=== PATIENT | male | born 1975 | race Caucasian/White ===

== ENCOUNTER 2017-06-25 12:21 | Emergency (ER) | payer MEDICAID ==
[~2017-06-25] VITALS: Ht 167.6 cm; Wt 99.5 kg
[2017-06-25 12:41] VITALS: BP 167/121
[2017-06-25] MEDS ORDERED: FLUORESCEIN OPHTHALMIC 1 MG STRIP EACHEYE ONE (13:00)
[2017-06-25] MEDS ORDERED: PROPARACAINE OPHTH 0.5%, 15ML EACHEYE ONE (13:00)
[2017-06-25] MEDS ORDERED: FLUORESCEIN OPHTHALMIC 1 MG STRIP ONE (13:02)
[2017-06-25] MEDS ORDERED: PROPARACAINE OPHTH 0.5%, 15ML ONE (13:02)
== END 2017-06-25 14:10 | disposition home or self-care (01) ==
LOC: ED 13:50
DX: H10.232 Serous conjunctivitis, except viral, left eye (principal); E11.9 Type 2 diabetes mellitus without complications; E78.5 Hyperlipidemia, unspecified; I10 Essential (primary) hypertension
CPT/HCPCS: 99283

== ENCOUNTER 2018-07-12 11:53 | Emergency (ER) | payer SELFPAY ==
[~2018-07-12] VITALS: Ht 165.1 cm; Wt 102.2 kg
[2018-07-12 12:19] VITALS: BP 181/109
--- NOTE | 2018-07-12 15:14 | NUR ---
NO ANSWER IN LOBBY OR LOBBY BATHROOM.
--- NOTE | 2018-07-12 16:43 | NUR ---
NO ANSWER X 2
--- NOTE | 2018-07-12 17:01 | NUR ---
NO ANSWER IN LOBBY.
--- NOTE | 2018-07-12 17:04 | NUR ---
NO ANS X 3
== END 2018-07-12 17:05 | disposition left against medical advice (07) ==
LOC: ED 16:59
DX: R50.9 Fever, unspecified (principal); R51 Headache; Z53.21 Procedure and treatment not carried out due to patient leaving prior to being seen by health care provider

== ENCOUNTER 2018-09-23 16:01 | Emergency (ER) | payer SELFPAY ==
[~2018-09-23] VITALS: Ht 165.1 cm; Wt 101.0 kg
[2018-09-23] MEDS ORDERED: PLEASE ENTER HEIGHT AND WEIGHT MC SCH (16:24)
[2018-09-23] MEDS ORDERED: LIDOCAINE-MPF 1%, 5ML INFIL ONE (16:30)
[2018-09-23 16:51] LABS: ALBUMIN 1.8 g/dL (3.4-5.0); ANION GAP 9 mmol/L (5-15); CALCIUM 8.1 mg/dL (8.5-10.1); CHLORIDE 102 mmol/L (98-107); CREATININE 2.33 mg/dL (0.7-1.3)
[2018-09-23] MEDS ORDERED: DIPH,PERTUSS(ACELL),TET VAC/PF 0.5 ML IM-VACC ONE ×2 (17:00→17:02)
[2018-09-23] MEDS ORDERED: LISINOPRIL 10 MG TABLET PO ONE (17:00)
[2018-09-23] MEDS ORDERED: LISINOPRIL 10 MG TABLET ONE (17:01)
[2018-09-23 17:02] LABS: MEAN CORPUSCULAR HEMOGLOBIN 26.9 pg (27.5-34.5); MEAN CORPUSCULAR HGB CONC 32.8 g/dL (33.2-36.2); MEAN CORPUSCULAR VOLUME 81.8 fL (81-97); PLATELET COUNT 268 x10^3/uL (130-400); RED BLOOD COUNT 6.06 x10^6/uL (4.38-5.82); RED CELL DISTRIBUTION WIDTH 13.4 % (9.4-14.8)
[2018-09-23] MEDS ORDERED: LIDOCAINE-MPF 1%, 5ML ONE ×2 (17:02)
--- NOTE | 2018-09-23 17:19 | NUR ---
RIGHT THUMB PAIN AFTER HITTING IT A FEW WEEKS AGO AT WORK. ERYTHEMA AT NAIL BED. PT STATES THAT THERE HAS BEEN PUS COMING OUT OF IT. PT STATES HE HAS HAD NO ENERGY. ADMITS TO NOT TAKING HIS DIABETES MEDS OR BLOOD PRESSURE MEDICATIONS CONSISTENTLY AND THAT HIS BLOOD SUGAR HAS BEEN RUNNING HIGH. BILATERAL LOWER EXTREMITY SWELLING FOR A YEAR AND HAS PINS/NEEDLES PAIN IN HIS FEET. AMBULATED TO BATHROOM WITHOUT ASSISTANCE
[2018-09-23 17:34] LABS: MD YES
[2018-09-23 17:35] LABS: <RBC MORPHOLOGY> NORMAL; EOS#(MANUAL) 0.26 x10^3/uL (0.0-0.4); EOS% (MANUAL) 3 % (1-7); LYMPH#(MANUAL) 1.45 x10^3/uL (1-3.4); LYMPHS% (MANUAL) 17 % (22-44); MONOS#(MANUAL) 0.43 x10^3/uL (0.3-2.7); MONOS% (MANUAL) 5 % (2-9); REACTIVE LYMPHS # (MANUAL) 0.26 x10^3/uL (0-0); REACTIVE LYMPHS % (MANUAL) 3 % (0-0); SEG#(MANUAL) 6.12 x10^3/uL (1.8-6.8); SEGS% (MANUAL) 72 % (42-75); SMUDGE CELLS 1+
[2018-09-23 17:36] LABS: <PLATELET ESTIMATE> ADEQUATE; GIANT PLATELETS 1+; LARGE PLATELETS 1+
[2018-09-23 17:53] LABS: PH, VENOUS 7.373 pH (7.320-7.420)
[2018-09-23 18:00] VITALS: BP 212/129
[2018-09-23] MEDS ORDERED: SODIUM CHLORIDE FLUSH 10ML SYR IVF ONE (18:00)
[2018-09-23] MEDS ORDERED: SODIUM CHLORIDE 0.9% 1,000ML IVBOLUS ONE (18:00)
--- NOTE | 2018-09-23 18:16 | NUR ---
PT DOES NOT WANT TO BE ADMITTED TO HOSPITAL, STATING THAT HE HAS TO FINISH A PROJECT AT WORK TOMORROW TO GET PAID. DR BULLOCK AT BEDSIDE DISCUSSING LAB RESULTS AND BENEFITS OF ADMISSION. PT AND GIVEN TIME TO DISCUSS OPTIONS
[2018-09-23 18:21] LABS: MICROSCOPIC INDICATED
[2018-09-23 18:30] LABS: CULTURE INDICATED? NO
--- NOTE | 2018-09-23 18:38 | NUR ---
MD AWARE OF CURRENT BP
--- NOTE | 2018-09-23 18:38 | NUR ---
PT STATES HE WANTS TO BE DISCHARGED AND WILL RETURN TOMORROW. MD LOREDO
[2018-09-23 19:08] LABS: ACETONE, SERUM Trace (10mg/dL) mg/dL (Negative)
--- NOTE | 2018-09-23 19:10 | NUR ---
TASK RN: DESPITE EXTENSIVE CONVERSATION WITH ERP REGARDING ADMIT- PT REFUSING AND IS REQUESTING DC. DC EDUCATION PROVIDED W/ ADVISEMENT TO RETURN TO ED TOMORROW FOR ADMIT. PT DEMONSTRATES UNDERSTANDING. PT AMBULATED STEADILY TO DC WITH RN
[2018-09-24] MEDS ORDERED: GLIP-142 PO (19:12)
[2018-09-24] MEDS ORDERED: ATOR-2 PO (23:07)
== END 2018-09-23 19:13 | disposition home or self-care (01) ==
LOC: ED 18:20
DX: L03.011 Cellulitis of right finger (principal); E88.09 Other disorders of plasma-protein metabolism, not elsewhere classified; I10 Essential (primary) hypertension; E11.65 Type 2 diabetes mellitus with hyperglycemia; Z88.0 Allergy status to penicillin
CPT/HCPCS: 10060; 36415; 71046; 80048; 81001; 82010; 82040; 82803; 83880; 85025; 90471; 90715; 93005

== ENCOUNTER 2018-09-24 17:31 | Inpatient (IN) | payer OTHER ==
[~2018-09-24] VITALS: Ht 167.6 cm; Wt 96.6 kg
[2018-09-24] MEDS ORDERED: SODIUM CHLORIDE FLUSH 10ML SYR IVF ONE (18:00)
[2018-09-24] MEDS ORDERED: hydrALAzine 20 MG/ML, 1ML IV ONE ×2 (18:00→20:30)
--- NOTE | 2018-09-24 18:00 | NUR ---
HX DIABETIC AND RENAL HERE YESTERDAY WAS RECOMENDED FOR ADMIT AND AMAd RETURNED TODAY REQUESTING ADMIT
[2018-09-24] MEDS ORDERED: hydrALAzine 20 MG/ML, 1ML ONE ×2 (18:03→19:41)
[2018-09-24] MEDS ORDERED: ASPIRIN 81 MG TABLET CHEW PO ONE ×2 (18:30→19:00)
[2018-09-24] MEDS ORDERED: ASPIRIN 81 MG TABLET CHEW ONE (18:35)
[2018-09-24 18:37] LABS: ALANINE AMINOTRANSFERASE 20 U/L (12-78); ALBUMIN 1.8 g/dL (3.4-5.0); ANION GAP 10 mmol/L (5-15); CHLORIDE 105 mmol/L (98-107); CREATININE 1.93 mg/dL (0.7-1.3)
[2018-09-24 18:41] LABS: ALKALINE PHOSPHATASE 120 U/L (45-117); BILIRUBIN,TOTAL 0.3 mg/dL (0.2-1.0); TOTAL PROTEIN 6.5 g/dL (6.4-8.2); TROPONIN I < 0.015 ng/mL (0.000-0.045)
--- NOTE | 2018-09-24 18:51 | NUR ---
ULTRASOUND DELAY-LABS.
--- NOTE | 2018-09-24 19:03 | NUR ---
RECEIVED REPORT FROM SHANTEL FARRELL TO ASSUME CARE OF PT. LAB AT FOR BLOOD DRAW. FAMILY AT FOR SUPPORT. PT. AGREEABLE WITH PLAN FOR ADMISSION(HAD LEFT AMA PRIOR). ALL MONITORS IN PLACE. CALL LIGHT IN REACH. ALL SAFETY MEASURES OBSERVED.
[2018-09-24] MEDS ORDERED: GLIP-142 PO (19:12)
[2018-09-24 19:22] LABS: CALCIUM 8.1 mg/dL (8.5-10.1)
[2018-09-24 19:25] LABS: ABSOLUTE RETICS # 0.109 x10^6/uL (0.5-1.5); RED BLOOD COUNT 6.01 x10^6/uL (4.38-5.82); RETICULOCYTE COUNT % 1.81 % (0.5-1.5)
--- NOTE | 2018-09-24 19:28 | NUR ---
CONTINUED ELEVATED B/P AND OTHER LABS REPORTED TO [facility]; AWAING NEW ORDERS BY [facility]. PT. WITHOUT COMPLAINT AT THIS TIME.
[2018-09-24] MEDS ORDERED: LABETALOL 20 MG/4 ML IVPush PRN (19:30)
[2018-09-24 19:45] LABS: HEMOGLOBIN A1C 13.2 % (4.2-6.3)
[2018-09-24] MEDS ORDERED: LISINOPRIL 20 MG TABLET ONE (19:45)
--- NOTE | 2018-09-24 19:58 | NUR ---
URINE COLLECTED AND SENT TO LAB. AGAIN DISCUSSED B/P AND FSBS OF 514 WITH [facility]; HE STATES NEW ORDERS TO BE PUT IN. FOR NOW VERBAL ORDER TO ADMIN THE PRN HYDRALAZINE. AWAITING NEW ORDERS.
[2018-09-24] MEDS: hydrALAzine 20 MG/ML, 1ML IV PRN (20:01)
--- NOTE | 2018-09-24 20:07 | NUR ---
PT. HAS BEEN MEDICATED PER JUL.
--- NOTE | 2018-09-24 20:14 | NUR ---
UPDATEDS ABOUT PT. AND ORDERS CALLED TO SHANTEL DOTY. PT. BEING TRANSPORTED TO FLOOR NOW. STAT GLUCOSE BY LAB ORDERED AND NEW ORDERS HAVE BEEN REPORTED TO SHANTEL DOTY.
[2018-09-24 20:16] LABS: MICROSCOPIC INDICATED
--- NOTE | 2018-09-24 20:17 | NUR ---
LAB HAD CALLED AND REPORTED THEY NEED MORE URINE TO RUN ALL URINE ORDER. URINE CUP WALKED TO LAB FOR THIS.
[2018-09-24 20:22] VITALS: BP 171/100
[2018-09-24 20:22] LABS: CREATININE,URINE RANDOM 51.9 mg/dL
[2018-09-24 20:25] LABS: CULTURE INDICATED? NO
[2018-09-24] MEDS: FUROSEMIDE 20 MG/2 ML IV SCH (20:28)
[2018-09-24] MEDS: LISINOPRIL 20 MG TABLET PO SCH (20:28)
[2018-09-24] MEDS: INSULIN LISPRO 100 UNITS/ML, PEN SQ-INSULIN SCH (20:28)
[2018-09-24] MEDS ORDERED: POTASSIUM CHLORIDE 40 MEQ in SODIUM CHLORIDE 0.9% 500 ML IV ONE (20:30)
[2018-09-24] MEDS ORDERED: LISINOPRIL 10 MG TABLET PO SCH (21:00)
[2018-09-24 21:53] VITALS: BP 189/105
[2018-09-24] MEDS ORDERED: INSULIN REGULAR 100 UNITS/ML, 3ML VIAL SQ-INSULIN ONE (22:00)
[2018-09-24 22:51] VITALS: BP 146/91
[2018-09-24 23:00] VITALS: BP_SYST 146; BP_SYST 220; BP_DIAS 130; BP_DIAS 91
[2018-09-24] MEDS ORDERED: ATOR-2 PO (23:07)
[2018-09-25] VITALS (9 sets, daily range): BP systolic 128–179; BP diastolic 63–112
[2018-09-25] MEDS: hydrALAzine 20 MG/ML, 1ML IV PRN (03:46)
[2018-09-25] MEDS ORDERED: METF500T17 PO (03:53)
[2018-09-25] MEDS ORDERED: LISI-167 PO (03:54)
[2018-09-25] MEDS ORDERED: ASPI81TA45 PO (03:56)
[2018-09-25 05:34] LABS: ALANINE AMINOTRANSFERASE 12 U/L (12-78); ALBUMIN 1.5 g/dL (3.4-5.0); ANION GAP 11 mmol/L (5-15); CALCIUM 7.6 mg/dL (8.5-10.1); CHLORIDE 110 mmol/L (98-107); CREATININE 1.59 mg/dL (0.7-1.3)
[2018-09-25 05:39] LABS: ALKALINE PHOSPHATASE 89 U/L (45-117); BILIRUBIN,TOTAL 0.4 mg/dL (0.2-1.0); TOTAL PROTEIN 5.3 g/dL (6.4-8.2); TROPONIN I < 0.015 ng/mL (0.000-0.045)
[2018-09-25 06:08] LABS: MEAN CORPUSCULAR HEMOGLOBIN 27.2 pg (27.5-34.5); MEAN CORPUSCULAR HGB CONC 33.5 g/dL (33.2-36.2); MEAN PLATELET VOLUME 11.2 fL (7.4-10.4); PLATELET COUNT 254 x10^3/uL (130-400); RED BLOOD COUNT 5.47 x10^6/uL (4.38-5.82); RED CELL DISTRIBUTION WIDTH 13.2 % (9.4-14.8)
[2018-09-25 06:11] LABS: <PLATELET ESTIMATE> ADEQUATE; <PLT MORPHOLOGY> NORMAL PLT MORPH; <RBC MORPHOLOGY> NORMAL; BASOPHILS # (AUTO) 0.04 x10^3/uL (0-0.1); BASOPHILS % (AUTO) 1 % (0-1); EOSINOPHILS # (AUTO) 0.26 x10^3/uL (0-0.4); EOSINOPHILS % (AUTO) 3 % (1-7); LARGE PLATELETS 1+; LYMPHOCYTES # (AUTO) 1.89 x10^3/uL (1-3.4); LYMPHOCYTES % (AUTO) 24 % (22-44); MD MORPH REVIEW ONLY; MONOCYTES # (AUTO) 0.67 x10^3/uL (0.2-0.8); MONOCYTES % (AUTO) 9 % (2-9); NEUTROPHILS # (AUTO) 4.89 x10^3/uL (1.8-6.8); NEUTROPHILS % (AUTO) 63 % (42-75)
[2018-09-25] MEDS: FUROSEMIDE 20 MG/2 ML IV SCH ×2 (07:44→21:51)
[2018-09-25] MEDS: LISINOPRIL 20 MG TABLET PO SCH ×2 (07:44→21:39)
[2018-09-25] MEDS: GLIPIZIDE 10 MG HOMEMEDPO SCH (07:44)
[2018-09-25] MEDS: INSULIN LISPRO 100 UNITS/ML, PEN SQ-INSULIN SCH ×4 (07:51→21:40)
[2018-09-25] MEDS ORDERED: POTASSIUM CHLORIDE 20 MEQ TAB.ER.PRT PO ONE ×2 (09:00→17:00)
[2018-09-25] MEDS: AMLODIPINE 5 MG TABLET PO SCH (12:58)
[2018-09-25] MEDS: ACETAMINOPHEN 325 MG TABLET PO PRN ×2 (12:58→22:02)
[2018-09-25] MEDS ORDERED: LABETALOL 5 MG/ML SYRINGE IVPush PRN (13:30)
[2018-09-25] MEDS ORDERED: hydrALAzine 20 MG/ML, 1ML IV PRN (16:00)
[2018-09-25] MEDS: METOPROLOL TARTRATE 25 MG TABLET PO SCH (17:09)
[2018-09-25] MEDS ORDERED: INSULIN GLARGINE 100 UNITS/ML, PEN SQ-INSULIN SCH (21:00)
[2018-09-26 01:44] VITALS: BP 116/73
[2018-09-26 05:12] VITALS: BP 164/100
[2018-09-26] MEDS: METOPROLOL TARTRATE 25 MG TABLET PO SCH (05:14)
[2018-09-26 06:06] LABS: ALBUMIN 1.6 g/dL (3.4-5.0); ANION GAP 8 mmol/L (5-15); CALCIUM 7.7 mg/dL (8.5-10.1); CHLORIDE 108 mmol/L (98-107); CREATININE 1.84 mg/dL (0.7-1.3); MEAN CORPUSCULAR HEMOGLOBIN 27.3 pg (27.5-34.5); MEAN CORPUSCULAR HGB CONC 33.4 g/dL (33.2-36.2); MEAN CORPUSCULAR VOLUME 81.8 fL (81-97); MEAN PLATELET VOLUME 11.6 fL (7.4-10.4); PLATELET COUNT 295 x10^3/uL (130-400); RED BLOOD COUNT 5.57 x10^6/uL (4.38-5.82); RED CELL DISTRIBUTION WIDTH 13.4 % (9.4-14.8)
[2018-09-26 07:30] VITALS: BP 168/101
[2018-09-26 07:45] LABS: BASOPHILS # (AUTO) 0.03 x10^3/uL (0-0.1); BASOPHILS % (AUTO) 0 % (0-1); EOSINOPHILS # (AUTO) 0.24 x10^3/uL (0-0.4); EOSINOPHILS % (AUTO) 3 % (1-7); LYMPHOCYTES # (AUTO) 1.79 x10^3/uL (1-3.4); LYMPHOCYTES % (AUTO) 22 % (22-44); MD SCAN; MONOCYTES # (AUTO) 0.79 x10^3/uL (0.2-0.8); MONOCYTES % (AUTO) 10 % (2-9); NEUTROPHILS # (AUTO) 5.47 x10^3/uL (1.8-6.8); NEUTROPHILS % (AUTO) 66 % (42-75)
[2018-09-26] MEDS: AMLODIPINE 5 MG TABLET PO SCH (08:11)
[2018-09-26] MEDS: INSULIN LISPRO 100 UNITS/ML, PEN SQ-INSULIN SCH ×2 (08:11→11:25)
[2018-09-26] MEDS: LISINOPRIL 20 MG TABLET PO SCH (08:12)
[2018-09-26] MEDS: GLIPIZIDE 10 MG HOMEMEDPO SCH (08:12)
[2018-09-26] MEDS: FUROSEMIDE 20 MG/2 ML IV SCH (08:12)
[2018-09-26] MEDS: ACETAMINOPHEN 325 MG TABLET PO PRN (10:03)
[2018-09-26 11:28] VITALS: BP 159/103
[2018-09-26 11:30] VITALS: BP 149/93
[2018-09-26] MEDS ORDERED: ERGOCALCIFEROL 50,000 UNIT CAPSULE PO SCH (12:00)
[2018-09-26] MEDS ORDERED: ATOR-2 PO (12:27)
[2018-09-26] MEDS ORDERED: LISI40TA PO (12:27)
[2018-09-26] MEDS ORDERED: METF500T17 PO (12:27)
[2018-09-26] MEDS ORDERED: AMLO-150 PO (12:27)
[2018-09-26] MEDS ORDERED: INSU100I13 SQ-INSULIN (12:27)
[2018-09-26] MEDS ORDERED: ASPI81TA45 PO (12:27)
[2018-09-26] MEDS ORDERED: GLIP-142 PO (12:27)
[2018-09-26] MEDS ORDERED: METO25TA35 PO (12:27)
[2018-09-26] MEDS ORDERED: ERGO500017 PO (12:30)
[2018-09-26] MEDS ORDERED: FURO80TA3 PO (12:30)
[2018-09-26] MEDS ORDERED: POTA20TA91 PO (12:35)
[2018-09-26] MEDS ORDERED: MAGN64TA7 PO (12:35)
[2018-09-26 13:20] VITALS: BP 120/65
[2018-09-26] MEDS ORDERED: FUROSEMIDE 80 MG TABLET PO SCH (17:00)
== END 2018-09-26 14:21 | disposition home or self-care (01) | DRG 682 ==
LOC: ED 18:10 → EDIP 18:32 → 4WST 20:15 → DCLOUNGE 09-26 14:20
PROVIDERS: ADMIT Internal Medicine; ATTEND Internal Medicine
DX: N17.0 Acute kidney failure with tubular necrosis (principal); E43 Unspecified severe protein-calorie malnutrition; D75.1 Secondary polycythemia; E11.22 Type 2 diabetes mellitus with diabetic chronic kidney disease; E11.40 Type 2 diabetes mellitus with diabetic neuropathy, unspecified; E11.65 Type 2 diabetes mellitus with hyperglycemia; E55.9 Vitamin D deficiency, unspecified; E78.5 Hyperlipidemia, unspecified; E87.70 Fluid overload, unspecified; F12.90 Cannabis use, unspecified, uncomplicated; I12.9 Hypertensive chronic kidney disease with stage 1 through stage 4 chronic kidney disease, or unspecified chronic kidney disease; I16.0 Hypertensive urgency; N18.3 Chronic kidney disease, stage 3 (moderate); N25.0 Renal osteodystrophy; Z79.899 Other long term (current) drug therapy; Z91.14 Patient's other noncompliance with medication regimen; Z82.49 Family history of ischemic heart disease and other diseases of the circulatory system; Z91.19 Patient's noncompliance with other medical treatment and regimen; Z68.34 Body mass index [BMI] 34.0-34.9, adult; Z88.0 Allergy status to penicillin
CPT/HCPCS: 36415; 76770; 80053; 80069; 81001; 82306; 82310; 82436; 82570; 82728; 82947; 82962; 83036; 83540; 83550; 83735; 83970; 84100; 84133; 84155; 84156; 84165; 84166; 84300; 84443; 84484; 84550; 85025; 85045; 93005; 93306; 96374; G0378; J1815; J3480; J0360; J1940; J7040

== ENCOUNTER 2019-05-13 14:54 | Emergency (ER) | payer MEDICAID ==
[~2019-05-13] VITALS: Ht 167.6 cm; Wt 106.0 kg
[~2019-05-13 14:54] MED LIST: AMLO-150 PO; ASPI81TA45 PO; ATOR-2 PO; ERGO500017 PO; FURO80TA3 PO; GLIP-142 PO; INSU100I13 SQ-INSULIN; LISI-167 PO; LISI40TA PO; MAGN64TA7 PO; METF500T17 PO; METO25TA35 PO; POTA20TA91 PO
[2019-05-13 14:56] VITALS: BP 173/96
[2019-05-13] MEDS ORDERED: FLUORESCEIN OPHTHALMIC 1 MG STRIP ONE (15:10)
[2019-05-13] MEDS ORDERED: PROPARACAINE OPHTH 0.5%, 15ML ONE (15:10)
--- NOTE | 2019-05-13 15:14 | NUR ---
PT AMBULATORY TO ROOM 6 W/ C/O L EYE BURNING, ITCHING, SENSITIVE TO LIGHT. PT STATES SX STARTED YESTERDAY. PT RESTING ON ZULMA. DELISA.
[2019-05-13] MEDS ORDERED: FLUORESCEIN OPHTHALMIC 1 MG STRIP EACHEYE ONE (15:30)
[2019-05-13] MEDS ORDERED: PROPARACAINE OPHTH 0.5%, 15ML EACHEYE ONE (15:30)
== END 2019-05-13 15:30 | disposition home or self-care (01) ==
LOC: ED 15:20
DX: H10.022 Other mucopurulent conjunctivitis, left eye (principal); E78.5 Hyperlipidemia, unspecified; E11.65 Type 2 diabetes mellitus with hyperglycemia; I10 Essential (primary) hypertension
CPT/HCPCS: 99283

== ENCOUNTER 2019-09-03 12:57 | Emergency (ER) | payer MEDICAID ==
[~2019-09-03] VITALS: Ht 165.1 cm; Wt 105.6 kg
--- NOTE | 2019-09-03 13:25 | NUR ---
THIS IS A 43 YO MALE WHO PRESENTS TO THE ER C/O VISION CHANGES AND HYPERTENSION. PT REPORTS HE IS COMPLIANT WITH BP MEDS BUT HAS BEEN "VERY STRESSED" LATELY. PT DENIES FARAH. PT DENIES DIZZINESS. DENIES SI/HI. PT AO X 4. SKIN PWD. RESP EVEN AND UNLABORED. PT ON CONT BP AND O2 MONITORS. CALL LIGHT WITHIN REACH. WILL CONT TO MONITOR PT.
[2019-09-03 14:07] LABS: MEAN CORPUSCULAR HEMOGLOBIN 27.1 pg (27.5-34.5); MEAN CORPUSCULAR VOLUME 81.9 fL (81-97); MEAN PLATELET VOLUME 11.1 fL (7.4-10.4); PLATELET COUNT 254 x10^3/uL (130-400); RED BLOOD COUNT 5.63 x10^6/uL (4.38-5.82); RED CELL DISTRIBUTION WIDTH 14.8 % (9.4-14.8)
[2019-09-03 14:15] LABS: ANION GAP 5 mmol/L (5-15); CALCIUM 8.4 mg/dL (8.5-10.1); CHLORIDE 112 mmol/L (98-107); CREATININE 2.83 mg/dL (0.7-1.3)
[2019-09-03 14:35] LABS: BASOPHILS # (AUTO) 0.04 x10^3/uL (0-0.1); BASOPHILS % (AUTO) 1 % (0-1); EOSINOPHILS # (AUTO) 0.44 x10^3/uL (0-0.4); EOSINOPHILS % (AUTO) 5 % (1-7); LYMPHOCYTES % (AUTO) 19 % (22-44); MD MORPH REVIEW ONLY; MONOCYTES # (AUTO) 0.73 x10^3/uL (0.2-0.8); MONOCYTES % (AUTO) 9 % (2-9); NEUTROPHILS # (AUTO) 5.69 x10^3/uL (1.8-6.8); NEUTROPHILS % (AUTO) 67 % (42-75)
[2019-09-03 14:36] LABS: <PLATELET ESTIMATE> ADEQUATE; <RBC MORPHOLOGY> NORMAL; GIANT PLATELETS 1+
--- NOTE | 2019-09-03 14:51 | NUR ---
BP RECHECKED MANUALLY BY PHAN PATRICIA. 170/98. PT REMEDICATED ORDERED WITH SECOND CLONIDINE. PT AO X 4. SKIN PWD. RESP EVEN AND UNLABORED. PT VERBALIZES UNDERSTANDING OF POC AND NEED FOR F/U TOMORROW MORNING WITH [facility].
[2019-09-03 15:26] VITALS: BP 170/95
== END 2019-09-03 15:29 | disposition home or self-care (01) ==
LOC: ED 14:23
DX: H57.89 Other specified disorders of eye and adnexa (principal); E11.65 Type 2 diabetes mellitus with hyperglycemia; I12.9 Hypertensive chronic kidney disease with stage 1 through stage 4 chronic kidney disease, or unspecified chronic kidney disease; E11.22 Type 2 diabetes mellitus with diabetic chronic kidney disease; N18.3 Chronic kidney disease, stage 3 (moderate); E78.5 Hyperlipidemia, unspecified
CPT/HCPCS: 36415; 80048; 85025; 99285

== ENCOUNTER 2020-07-20 22:57 | Inpatient (IN) | payer MEDICAID ==
[~2020-07-20] VITALS: Ht 172.7 cm; Wt 120.6 kg
[~2020-07-20 22:57] MED LIST changes: -LISI40TA PO; +LISI40TA9 PO
[2020-07-21 00:18] VITALS: BP 168/91
[2020-07-21] MEDS ORDERED: BISACODYL 10 MG SUPP PR PRN (00:30)
[2020-07-21] MEDS ORDERED: ONDANSETRON ODT 4 MG PO PRN (00:30)
[2020-07-21] MEDS ORDERED: SODIUM CHLORIDE 0.9% 1,000 ML IV SCH (00:30)
[2020-07-21] MEDS ORDERED: PROMETHAZINE 25 MG/ML, 1ML IM PRN (00:30)
[2020-07-21] MEDS ORDERED: hydrALAzine 20 MG/ML, 1ML IVPush PRN (00:30)
[2020-07-21] MEDS ORDERED: OXYcodone IR 5MG TABLET PO PRN (00:30)
[2020-07-21] MEDS: HEPARIN 5,000 UNITS/ML, 1ML SQ SCH ×3 (00:49→16:49)
[2020-07-21] MEDS ORDERED: FURO80TA3 PO (01:08)
[2020-07-21] MEDS ORDERED: POTA20TA14 PO (01:08)
[2020-07-21] MEDS: ONDANSETRON 2MG/ML, 2ML IVPush PRN (01:25)
[2020-07-21] MEDS ORDERED: LABETALOL 5MG/ML, 20ML IVPush PRN (01:30)
[2020-07-21 01:40] VITALS: BP 160/93
[2020-07-21] MEDS ORDERED: FUROSEMIDE 40 MG/4 ML IV ONE (02:00)
[2020-07-21] MEDS: ACETAMINOPHEN 325 MG TABLET PO PRN ×3 (04:02→16:49)
[2020-07-21] MEDS: INSULIN LISPRO 100 UNITS/ML, PEN SQ-INSULIN SCH ×4 (07:00→19:41)
[2020-07-21 07:21] LABS: BASOPHILS % (AUTO) 0 % (0-1); EOSINOPHILS % (AUTO) 3 % (1-7); LYMPHOCYTES % (AUTO) 11 % (22-44); MEAN PLATELET VOLUME 11.5 fL (7.4-10.4); MONOCYTES % (AUTO) 12 % (2-9); NEUTROPHILS % (AUTO) 75 % (42-75); PLATELET COUNT 256 x10^3/uL (130-400); RED BLOOD COUNT 3.94 x10^6/uL (4.38-5.82); RED CELL DISTRIBUTION WIDTH 14.7 % (9.4-14.8)
[2020-07-21 07:32] LABS: ALANINE AMINOTRANSFERASE 15 U/L (12-78); ALBUMIN 1.7 g/dL (3.4-5.0); ANION GAP 12 mmol/L (5-15); CALCIUM 6.8 mg/dL (8.5-10.1); CHLORIDE 113 mmol/L (98-107)
[2020-07-21 07:34] LABS: ALKALINE PHOSPHATASE 81 U/L (45-117); BILIRUBIN,TOTAL 0.7 mg/dL (0.2-1.0); CREATININE 7.94 mg/dL (0.7-1.3); TOTAL PROTEIN 5.7 g/dL (6.4-8.2)
[2020-07-21 07:46] LABS: MD SCAN
[2020-07-21 08:36] VITALS: BP 145/88
[2020-07-21] MEDS ORDERED: ASPIRIN 81 MG TABLET EC PO SCH (09:00)
[2020-07-21] MEDS: FUROSEMIDE 40 MG/4 ML IV SCH ×2 (09:45→16:49)
[2020-07-21] MEDS: LOSARTAN 50MG TABLET PO SCH ×2 (12:33→19:43)
[2020-07-21 13:58] VITALS: BP 155/89
[2020-07-21 14:14] LABS: ABSOLUTE RETICS # 0.062 x10^6/uL (0.5-1.5); RED BLOOD COUNT 4.43 x10^6/uL (4.38-5.82); RETICULOCYTE COUNT % 1.39 % (0.5-1.5)
[2020-07-21 14:15] LABS: CALCIUM 7.8 mg/dL (8.5-10.1)
[2020-07-21 15:07] LABS: MICROSCOPIC AUTO
[2020-07-21 15:14] LABS: CHLORIDE,URINE RANDOM 68 mmol/L; POTASSIUM,URINE RANDOM 36 mmol/L; SODIUM,URINE RANDOM 54 mmol/L
[2020-07-21 15:20] LABS: CREATININE,URINE RANDOM 80.3 mg/dL
[2020-07-21] MEDS: morphine SULFATE 10 MG/ML, 1ML IVPush PRN ×3 (18:40→22:53)
[2020-07-21 20:02] VITALS: BP 158/93
[2020-07-22] MEDS: ACETAMINOPHEN 325 MG TABLET PO PRN ×2 (00:30→20:12)
[2020-07-22] MEDS: HEPARIN 5,000 UNITS/ML, 1ML SQ SCH ×3 (00:30→17:31)
[2020-07-22 00:34] VITALS: BP 142/88
[2020-07-22] MEDS: morphine SULFATE 10 MG/ML, 1ML IVPush PRN ×3 (02:13→22:20)
[2020-07-22] MEDS: ONDANSETRON 2MG/ML, 2ML IVPush PRN ×3 (02:18→22:19)
[2020-07-22 05:06] LABS: BASOPHILS % (AUTO) 1 % (0-1); EOSINOPHILS % (AUTO) 5 % (1-7); LYMPHOCYTES % (AUTO) 19 % (22-44); MEAN CORPUSCULAR HEMOGLOBIN 27.4 pg (27.5-34.5); MEAN CORPUSCULAR HGB CONC 32.6 g/dL (33.2-36.2); MEAN PLATELET VOLUME 12.2 fL (7.4-10.4); MONOCYTES % (AUTO) 12 % (2-9); NEUTROPHILS % (AUTO) 63 % (42-75); PLATELET COUNT 267 x10^3/uL (130-400); RED BLOOD COUNT 4.14 x10^6/uL (4.38-5.82); RED CELL DISTRIBUTION WIDTH 15.3 % (9.4-14.8)
[2020-07-22 05:18] LABS: ALBUMIN 1.9 g/dL (3.4-5.0); ANION GAP 11 mmol/L (5-15); CALCIUM 7.2 mg/dL (8.5-10.1); CHLORIDE 111 mmol/L (98-107)
[2020-07-22 05:30] LABS: CHOL/HDL RATIO 5.6; CHOLESTEROL, TOTAL 186 mg/dL (140-239); CREATININE 8.52 mg/dL (0.7-1.3); HDL CHOL % 18 % (26-37); HDL CHOLESTEROL (DIRECT) 33 mg/dL (40-60); LDL CHOLESTEROL,CALCULATED 131 mg/dL (54-169); TRIGLYCERIDES 112 mg/dL (50-200); VLDL CHOLESTEROL 22 mg/dL (0-25)
[2020-07-22 05:36] LABS: MD SCAN
[2020-07-22] MEDS: INSULIN LISPRO 100 UNITS/ML, PEN SQ-INSULIN SCH ×4 (07:00→20:12)
[2020-07-22] MEDS: ERGOCALCIFEROL 50,000 UNIT CAPSULE PO SCH (08:00)
[2020-07-22 08:13] VITALS: BP 148/91
[2020-07-22] MEDS: FUROSEMIDE 40 MG/4 ML IV SCH ×2 (08:48→17:29)
[2020-07-22] MEDS: LOSARTAN 50MG TABLET PO SCH ×2 (08:49→20:12)
[2020-07-22] MEDS ORDERED: FENTANYL PF 100 MCG/2ML ONE ×2 (10:16→13:51)
[2020-07-22] MEDS ORDERED: MIDAZOLAM 1 MG/ML, 5ML ONE ×3 (10:16→13:52)
[2020-07-22] MEDS ORDERED: FLUMAZENIL 0.1 MG/1 ML, 5ML ONE (10:16)
[2020-07-22] MEDS ORDERED: NALOXONE 1 MG/ML, 2ML ONE (10:17)
[2020-07-22] MEDS: MULTIVITS,STRESS FORMULA 1 TABLET PO SCH (11:30)
[2020-07-22] MEDS: IRON SUCROSE COMPLEX 100MG/5ML IV SCH (11:30)
[2020-07-22] MEDS: SEVELAMER CARBONATE 800MG TAB PO SCH ×2 (12:00→17:00)
[2020-07-22 12:40] VITALS: BP 134/87
[2020-07-22] MEDS ORDERED: VANCOMYCIN PMX 1GM/200ML 200 ML IV ONE (14:15)
[2020-07-22 18:31] VITALS: BP 139/90
[2020-07-23 01:01] VITALS: BP 149/90
[2020-07-23] MEDS: HEPARIN 5,000 UNITS/ML, 1ML SQ SCH ×3 (01:40→17:59)
[2020-07-23] MEDS: ACETAMINOPHEN 325 MG TABLET PO PRN ×3 (01:41→17:59)
[2020-07-23] MEDS: ONDANSETRON 2MG/ML, 2ML IVPush PRN ×2 (04:36→21:28)
[2020-07-23] MEDS: morphine SULFATE 10 MG/ML, 1ML IVPush PRN ×2 (04:36→21:28)
[2020-07-23 05:46] LABS: BASOPHILS % (AUTO) 1 % (0-1); EOSINOPHILS % (AUTO) 4 % (1-7); LYMPHOCYTES % (AUTO) 12 % (22-44); MEAN CORPUSCULAR HEMOGLOBIN 26.9 pg (27.5-34.5); MEAN CORPUSCULAR HGB CONC 32.2 g/dL (33.2-36.2); MEAN PLATELET VOLUME 12.1 fL (7.4-10.4); MONOCYTES % (AUTO) 12 % (2-9); NEUTROPHILS % (AUTO) 71 % (42-75); PLATELET COUNT 228 x10^3/uL (130-400); RED CELL DISTRIBUTION WIDTH 14.7 % (9.4-14.8)
[2020-07-23 05:50] LABS: MD NO
[2020-07-23 05:51] LABS: CHLORIDE 109 mmol/L (98-107)
[2020-07-23 06:24] LABS: ALBUMIN 1.8 g/dL (3.4-5.0); ANION GAP 11 mmol/L (5-15); CALCIUM 7.3 mg/dL (8.5-10.1); CREATININE 7.42 mg/dL (0.7-1.3)
[2020-07-23] MEDS: INSULIN LISPRO 100 UNITS/ML, PEN SQ-INSULIN SCH ×4 (07:00→20:50)
[2020-07-23 07:15] VITALS: BP 149/92
[2020-07-23] MEDS: SEVELAMER CARBONATE 800MG TAB PO SCH ×3 (08:20→16:52)
[2020-07-23] MEDS: LOSARTAN 50MG TABLET PO SCH ×2 (08:22→20:47)
[2020-07-23] MEDS: FUROSEMIDE 40 MG/4 ML IV SCH ×2 (08:23→17:51)
[2020-07-23] MEDS: MULTIVITS,STRESS FORMULA 1 TABLET PO SCH (08:24)
[2020-07-23] MEDS: CALCITRIOL 0.25 MCG CAPSULE PO SCH (09:30)
[2020-07-23] MEDS: IRON SUCROSE COMPLEX 100MG/5ML IV SCH (13:56)
[2020-07-23 14:54] VITALS: BP 156/97
[2020-07-23 19:08] VITALS: BP 165/84
[2020-07-23 20:46] VITALS: BP 154/96
[2020-07-24 00:16] VITALS: BP 163/98
[2020-07-24] MEDS: HEPARIN 5,000 UNITS/ML, 1ML SQ SCH ×3 (01:56→17:34)
[2020-07-24] MEDS: ACETAMINOPHEN 325 MG TABLET PO PRN ×3 (05:54→18:33)
[2020-07-24 05:59] LABS: BASOPHILS % (AUTO) 1 % (0-1); EOSINOPHILS % (AUTO) 4 % (1-7); LYMPHOCYTES % (AUTO) 15 % (22-44); MEAN CORPUSCULAR HEMOGLOBIN 26.9 pg (27.5-34.5); MEAN PLATELET VOLUME 12.1 fL (7.4-10.4); MONOCYTES % (AUTO) 15 % (2-9); NEUTROPHILS % (AUTO) 65 % (42-75); PLATELET COUNT 241 x10^3/uL (130-400); RED BLOOD COUNT 4.08 x10^6/uL (4.38-5.82)
[2020-07-24 06:02] LABS: ANION GAP 7 mmol/L (5-15); CALCIUM 7.8 mg/dL (8.5-10.1); CHLORIDE 105 mmol/L (98-107)
[2020-07-24 06:04] LABS: CREATININE 6.34 mg/dL (0.7-1.3)
[2020-07-24 06:30] LABS: MD SCAN
[2020-07-24] MEDS: INSULIN LISPRO 100 UNITS/ML, PEN SQ-INSULIN SCH ×4 (07:00→20:13)
[2020-07-24] MEDS: FUROSEMIDE 40 MG/4 ML IV SCH ×2 (07:49→16:54)
[2020-07-24] MEDS: MULTIVITS,STRESS FORMULA 1 TABLET PO SCH (07:50)
[2020-07-24] MEDS: CALCITRIOL 0.25 MCG CAPSULE PO SCH (07:50)
[2020-07-24] MEDS: LOSARTAN 50MG TABLET PO SCH ×2 (07:50→20:12)
[2020-07-24] MEDS: SEVELAMER CARBONATE 800MG TAB PO SCH ×3 (07:50→16:22)
[2020-07-24] MEDS: ONDANSETRON 2MG/ML, 2ML IVPush PRN ×3 (07:51→22:21)
[2020-07-24] MEDS: morphine SULFATE 10 MG/ML, 1ML IVPush PRN ×3 (07:51→22:21)
[2020-07-24 08:00] VITALS: BP 133/87
[2020-07-24] MEDS: IRON SUCROSE COMPLEX 100MG/5ML IV SCH (11:15)
[2020-07-24 13:35] VITALS: BP 135/92
[2020-07-24 19:21] VITALS: BP 144/92
[2020-07-25 01:34] VITALS: BP 167/108
[2020-07-25] MEDS: ACETAMINOPHEN 325 MG TABLET PO PRN ×4 (01:51→21:07)
[2020-07-25] MEDS: HEPARIN 5,000 UNITS/ML, 1ML SQ SCH ×3 (01:51→19:40)
[2020-07-25] MEDS: ONDANSETRON 2MG/ML, 2ML IVPush PRN ×3 (04:24→18:17)
[2020-07-25] MEDS: morphine SULFATE 10 MG/ML, 1ML IVPush PRN ×3 (04:25→18:17)
[2020-07-25] MEDS: POLYETHYLENE GLYCOL 17 GM PACKET PO PRN (04:33)
[2020-07-25 04:55] VITALS: BP 153/96
[2020-07-25 05:30] LABS: BASOPHILS % (AUTO) 1 % (0-1); EOSINOPHILS % (AUTO) 3 % (1-7); LYMPHOCYTES % (AUTO) 13 % (22-44); MEAN PLATELET VOLUME 12.2 fL (7.4-10.4); MONOCYTES % (AUTO) 11 % (2-9); NEUTROPHILS % (AUTO) 72 % (42-75); PLATELET COUNT 259 x10^3/uL (130-400); RED BLOOD COUNT 4.19 x10^6/uL (4.38-5.82); RED CELL DISTRIBUTION WIDTH 14.6 % (9.4-14.8)
[2020-07-25 05:32] LABS: MD NO
[2020-07-25 05:39] LABS: ANION GAP 9 mmol/L (5-15); CALCIUM 7.8 mg/dL (8.5-10.1); CHLORIDE 105 mmol/L (98-107); CREATININE 7.22 mg/dL (0.7-1.3)
[2020-07-25 06:47] VITALS: BP 149/92
[2020-07-25] MEDS: INSULIN LISPRO 100 UNITS/ML, PEN SQ-INSULIN SCH ×4 (07:00→19:44)
[2020-07-25] MEDS: FUROSEMIDE 40 MG/4 ML IV SCH ×2 (07:53→16:08)
[2020-07-25] MEDS: MULTIVITS,STRESS FORMULA 1 TABLET PO SCH (07:54)
[2020-07-25] MEDS: LOSARTAN 50MG TABLET PO SCH ×2 (07:54→19:40)
[2020-07-25] MEDS: SEVELAMER CARBONATE 800MG TAB PO SCH ×3 (07:55→16:17)
[2020-07-25] MEDS: CALCITRIOL 0.25 MCG CAPSULE PO SCH (07:55)
[2020-07-25] MEDS: IRON SUCROSE COMPLEX 100MG/5ML IV SCH (13:03)
[2020-07-25 13:49] VITALS: BP 131/83
[2020-07-25 18:34] VITALS: BP 137/84
[2020-07-26] MEDS: ONDANSETRON 2MG/ML, 2ML IVPush PRN ×4 (00:07→18:21)
[2020-07-26] MEDS: morphine SULFATE 10 MG/ML, 1ML IVPush PRN ×4 (00:08→18:21)
[2020-07-26 00:26] VITALS: BP 146/90
[2020-07-26] MEDS: ACETAMINOPHEN 325 MG TABLET PO PRN ×3 (02:32→22:39)
[2020-07-26 05:31] LABS: BASOPHILS % (AUTO) 1 % (0-1); EOSINOPHILS % (AUTO) 4 % (1-7); LYMPHOCYTES % (AUTO) 15 % (22-44); MEAN CORPUSCULAR HEMOGLOBIN 27.3 pg (27.5-34.5); MEAN CORPUSCULAR HGB CONC 32.5 g/dL (33.2-36.2); MEAN PLATELET VOLUME 11.7 fL (7.4-10.4); MONOCYTES % (AUTO) 16 % (2-9); NEUTROPHILS % (AUTO) 64 % (42-75); PLATELET COUNT 228 x10^3/uL (130-400); RED BLOOD COUNT 4.03 x10^6/uL (4.38-5.82); RED CELL DISTRIBUTION WIDTH 14.6 % (9.4-14.8)
[2020-07-26 05:36] LABS: INTERNATIONAL NORMALIZED RATIO 1.09 (0.93-1.1); PROTHROMBIN TIME 11.6 Seconds (9.6-11.5)
[2020-07-26 05:37] LABS: ALBUMIN 1.9 g/dL (3.4-5.0); ANION GAP 6 mmol/L (5-15); CALCIUM 7.9 mg/dL (8.5-10.1); CHLORIDE 104 mmol/L (98-107); CREATININE 6.19 mg/dL (0.7-1.3)
[2020-07-26] MEDS: HEPARIN 5,000 UNITS/ML, 1ML SQ SCH (05:50)
[2020-07-26 06:00] LABS: MD SCAN
[2020-07-26] MEDS: INSULIN LISPRO 100 UNITS/ML, PEN SQ-INSULIN SCH (07:00)
[2020-07-26] MEDS: CALCITRIOL 0.25 MCG CAPSULE PO SCH (07:32)
[2020-07-26] MEDS: LOSARTAN 50MG TABLET PO SCH ×2 (07:32→20:44)
[2020-07-26] MEDS: FUROSEMIDE 40 MG/4 ML IV SCH ×2 (07:33→16:42)
[2020-07-26] MEDS: SEVELAMER CARBONATE 800MG TAB PO SCH ×3 (07:39→16:42)
[2020-07-26] MEDS: MULTIVITS,STRESS FORMULA 1 TABLET PO SCH (07:40)
[2020-07-26 07:58] VITALS: BP 143/91
[2020-07-26] MEDS: IRON SUCROSE COMPLEX 100MG/5ML IV SCH (12:05)
[2020-07-26 13:27] VITALS: BP 149/96
[2020-07-26] MEDS ORDERED: MIDAZOLAM 1 MG/ML, 5ML ONE ×2 (14:09)
[2020-07-26] MEDS ORDERED: FLUMAZENIL 0.1 MG/1 ML, 5ML ONE (14:10)
[2020-07-26] MEDS ORDERED: NALOXONE 1 MG/ML, 2ML ONE (14:10)
[2020-07-26] MEDS ORDERED: FENTANYL PF 100 MCG/2ML ONE ×2 (14:10)
[2020-07-26] MEDS ORDERED: LIDOCAINE 1%, 10ML ONE (14:11)
[2020-07-26 20:10] VITALS: BP 161/94
[2020-07-27] MEDS: ONDANSETRON 2MG/ML, 2ML IVPush PRN ×4 (00:31→19:02)
[2020-07-27] MEDS: morphine SULFATE 10 MG/ML, 1ML IVPush PRN ×4 (00:32→19:02)
[2020-07-27 03:08] VITALS: BP 111/72
[2020-07-27] MEDS: ACETAMINOPHEN 325 MG TABLET PO PRN ×2 (04:18→21:18)
[2020-07-27 05:11] LABS: BASOPHILS % (AUTO) 1 % (0-1); EOSINOPHILS % (AUTO) 3 % (1-7); LYMPHOCYTES % (AUTO) 7 % (22-44); MEAN CORPUSCULAR HEMOGLOBIN 27.1 pg (27.5-34.5); MEAN CORPUSCULAR HGB CONC 31.8 g/dL (33.2-36.2); MEAN PLATELET VOLUME 11.8 fL (7.4-10.4); MONOCYTES % (AUTO) 15 % (2-9); NEUTROPHILS % (AUTO) 74 % (42-75); PLATELET COUNT 239 x10^3/uL (130-400); RED BLOOD COUNT 4.02 x10^6/uL (4.38-5.82); RED CELL DISTRIBUTION WIDTH 14.9 % (9.4-14.8)
[2020-07-27 05:23] LABS: ANION GAP 10 mmol/L (5-15); CALCIUM 8.5 mg/dL (8.5-10.1); CHLORIDE 100 mmol/L (98-107)
[2020-07-27 05:24] LABS: CREATININE 7.68 mg/dL (0.7-1.3)
[2020-07-27 05:48] LABS: MD SCAN
[2020-07-27] MEDS: FUROSEMIDE 40 MG/4 ML IV SCH (07:30)
[2020-07-27] MEDS: SEVELAMER CARBONATE 800MG TAB PO SCH ×3 (08:00→17:28)
[2020-07-27] MEDS: MULTIVITS,STRESS FORMULA 1 TABLET PO SCH (09:00)
[2020-07-27] MEDS: LOSARTAN 50MG TABLET PO SCH ×2 (09:00→19:51)
[2020-07-27] MEDS: CALCITRIOL 0.25 MCG CAPSULE PO SCH (09:00)
[2020-07-27 11:32] VITALS: BP 144/87
[2020-07-27] MEDS: MEROPENEM 500 MG in SODIUM CHLORIDE 0.9% 100 ML IV SCH (13:16)
[2020-07-27 17:28] VITALS: BP 125/85
[2020-07-27] MEDS: FUROSEMIDE 80 MG TABLET PO SCH (17:28)
[2020-07-27 18:50] VITALS: BP 137/86
[2020-07-28 00:42] VITALS: BP 144/92
[2020-07-28] MEDS: morphine SULFATE 10 MG/ML, 1ML IVPush PRN ×3 (01:05→16:39)
[2020-07-28] MEDS: MEROPENEM 500 MG in SODIUM CHLORIDE 0.9% 100 ML IV SCH ×2 (01:05→13:00)
[2020-07-28] MEDS: ONDANSETRON 2MG/ML, 2ML IVPush PRN ×3 (01:05→16:38)
[2020-07-28] MEDS: ACETAMINOPHEN 325 MG TABLET PO PRN ×3 (05:07→19:29)
[2020-07-28 08:52] VITALS: BP 127/81
[2020-07-28] MEDS: LOSARTAN 50MG TABLET PO SCH ×2 (08:54→19:29)
[2020-07-28] MEDS: SEVELAMER CARBONATE 800MG TAB PO SCH ×3 (08:55→16:38)
[2020-07-28] MEDS: CALCITRIOL 0.25 MCG CAPSULE PO SCH (08:55)
[2020-07-28] MEDS: FUROSEMIDE 80 MG TABLET PO SCH ×2 (08:55→16:38)
[2020-07-28] MEDS: MULTIVITS,STRESS FORMULA 1 TABLET PO SCH (08:56)
[2020-07-28 14:32] VITALS: BP 126/72
[2020-07-28] MEDS: POLYETHYLENE GLYCOL 17 GM PACKET PO PRN (19:46)
[2020-07-28] MEDS: DOCUSATE 100 MG CAPSULE PO PRN (19:46)
[2020-07-28 20:10] VITALS: BP 151/98
[2020-07-29] MEDS: MEROPENEM 500 MG in SODIUM CHLORIDE 0.9% 100 ML IV SCH ×2 (00:28→14:23)
[2020-07-29] MEDS: morphine SULFATE 10 MG/ML, 1ML IVPush PRN ×3 (01:28→14:24)
[2020-07-29] MEDS: ONDANSETRON 2MG/ML, 2ML IVPush PRN ×3 (01:28→14:23)
[2020-07-29 01:57] VITALS: BP 144/91
[2020-07-29 05:21] LABS: BASOPHILS % (AUTO) 1 % (0-1); EOSINOPHILS % (AUTO) 5 % (1-7); LYMPHOCYTES % (AUTO) 14 % (22-44); MEAN CORPUSCULAR HEMOGLOBIN 27.2 pg (27.5-34.5); MEAN CORPUSCULAR HGB CONC 31.9 g/dL (33.2-36.2); MEAN PLATELET VOLUME 11.3 fL (7.4-10.4); MONOCYTES % (AUTO) 16 % (2-9); NEUTROPHILS % (AUTO) 64 % (42-75); PLATELET COUNT 240 x10^3/uL (130-400); RED BLOOD COUNT 4.02 x10^6/uL (4.38-5.82); RED CELL DISTRIBUTION WIDTH 14.8 % (9.4-14.8)
[2020-07-29 05:30] LABS: ALBUMIN 2.1 g/dL (3.4-5.0); CALCIUM 8.8 mg/dL (8.5-10.1); CHLORIDE 102 mmol/L (98-107)
[2020-07-29 05:36] LABS: ALANINE AMINOTRANSFERASE 54 U/L (12-78); ALKALINE PHOSPHATASE 111 U/L (45-117); ANION GAP 8 mmol/L (5-15); BILIRUBIN,TOTAL 0.4 mg/dL (0.2-1.0); CREATININE 7.72 mg/dL (0.7-1.3); TOTAL PROTEIN 6.5 g/dL (6.4-8.2)
[2020-07-29 05:48] LABS: MD MORPH REVIEW ONLY
[2020-07-29 05:52] LABS: <PLATELET ESTIMATE> ADEQUATE; LARGE PLATELETS 1+; SMUDGE CELLS 1+
[2020-07-29 05:54] LABS: POLYCHROMASIA 1+
[2020-07-29] MEDS: ACETAMINOPHEN 325 MG TABLET PO PRN (06:15)
[2020-07-29 07:30] VITALS: BP 126/78
[2020-07-29] MEDS: SEVELAMER CARBONATE 800MG TAB PO SCH ×2 (07:53→12:59)
[2020-07-29] MEDS: ERGOCALCIFEROL 50,000 UNIT CAPSULE PO SCH (07:53)
[2020-07-29] MEDS: FUROSEMIDE 80 MG TABLET PO SCH (07:53)
[2020-07-29] MEDS: CALCITRIOL 0.25 MCG CAPSULE PO SCH (07:53)
[2020-07-29] MEDS: MULTIVITS,STRESS FORMULA 1 TABLET PO SCH (07:53)
[2020-07-29] MEDS: LOSARTAN 50MG TABLET PO SCH (07:53)
[2020-07-29] MEDS ORDERED: SENNOSIDES 8.6 MG TABLET PO SCH (11:30)
[2020-07-29 12:49] VITALS: BP 148/91
[2020-07-29] MEDS: POLYETHYLENE GLYCOL 17 GM PACKET PO PRN (12:59)
[2020-07-29] MEDS: DOCUSATE 100 MG CAPSULE PO PRN (12:59)
[2020-07-29] MEDS ORDERED: MORPHINE SULFATE 4 MG/ML, 1ML ONE (14:19)
[2020-07-29] MEDS ORDERED: CALC0.25 PO (14:59)
[2020-07-29] MEDS ORDERED: CLIN300C9 PO (14:59)
[2020-07-29] MEDS ORDERED: METO25TA35 PO (14:59)
[2020-07-29] MEDS ORDERED: SEVE800T8 PO (14:59)
[2020-07-29] MEDS ORDERED: ERGO500017 PO (14:59)
[2020-07-29] MEDS ORDERED: FURO80TA3 PO (14:59)
[2020-07-29] MEDS ORDERED: LOSA50TA2 PO (14:59)
[2020-07-29] MEDS ORDERED: ATOR40TA78 PO (15:00)
[2020-07-29] MEDS ORDERED: METOPROLOL TARTRATE 25 MG TAB PO SCH (18:00)
== END 2020-07-29 16:04 | disposition home or self-care (01) | DRG 673 ==
LOC: 3N 07-21 00:10 → DCLOUNGE 07-29 15:43
PROVIDERS: ADMIT Internal Medicine; ATTEND Hospitalist
PROC: 0JH63XZ Insertion of Tunneled Vascular Access Device into Chest Subcutaneous Tissue and Fascia, Percutaneous Approach (ICD-10-PCS; principal; 2020-07-22)
PROC: 05HM33Z Insertion of Infusion Device into Right Internal Jugular Vein, Percutaneous Approach (ICD-10-PCS; 2020-07-22)
PROC: B5131ZA Fluoroscopy of Right Jugular Veins using Low Osmolar Contrast, Guidance (ICD-10-PCS; 2020-07-22)
PROC: B543ZZA Ultrasonography of Right Jugular Veins, Guidance (ICD-10-PCS; 2020-07-22)
PROC: 5A1D70Z Performance of Urinary Filtration, Intermittent, Less than 6 Hours Per Day (ICD-10-PCS; 2020-07-22)
PROC: 5A1D70Z Performance of Urinary Filtration, Intermittent, Less than 6 Hours Per Day (ICD-10-PCS; 2020-07-23)
PROC: 5A1D70Z Performance of Urinary Filtration, Intermittent, Less than 6 Hours Per Day (ICD-10-PCS; 2020-07-25)
PROC: 0TB13ZX Excision of Left Kidney, Percutaneous Approach, Diagnostic (ICD-10-PCS; 2020-07-26)
PROC: 5A1D70Z Performance of Urinary Filtration, Intermittent, Less than 6 Hours Per Day (ICD-10-PCS; 2020-07-27)
DX: N17.9 Acute kidney failure, unspecified (principal); J96.01 Acute respiratory failure with hypoxia; L03.115 Cellulitis of right lower limb; I13.2 Hypertensive heart and chronic kidney disease with heart failure and with stage 5 chronic kidney disease, or end stage renal disease; I50.30 Unspecified diastolic (congestive) heart failure; Z68.41 Body mass index [BMI] 40.0-44.9, adult; N18.6 End stage renal disease; N04.9 Nephrotic syndrome with unspecified morphologic changes; D63.1 Anemia in chronic kidney disease; E11.22 Type 2 diabetes mellitus with diabetic chronic kidney disease; E11.40 Type 2 diabetes mellitus with diabetic neuropathy, unspecified; Z20.822 Contact with and (suspected) exposure to COVID-19; F12.90 Cannabis use, unspecified, uncomplicated; N25.0 Renal osteodystrophy; W22.09XA Striking against other stationary object, initial encounter; E66.9 Obesity, unspecified; Z83.3 Family history of diabetes mellitus; Z80.9 Family history of malignant neoplasm, unspecified; Z88.0 Allergy status to penicillin; Z99.2 Dependence on renal dialysis
CPT/HCPCS: 36415; 73610; J3490; 36558; 36565; 50200; 76770; 76937; 77012; 80048; 80053; 80061; 80069; 80074; 81001; 82306; 82310; 82330; 82436; 82570; 82728; 82962; 83036; 83540; 83550; 83735; 83970; 84133; 84156; 84300; 84443; 85025; 85045; 85610; 86480; 88300; 90935; 93306; 99156; 99157; G0378; J1644; J1756; J1940; J2185; J2250; J2405; J3010; J3370; C1750; G0365; J1642; J1815; J2270; J2310; J7030; U0003